=== PATIENT | female | born 1970 | race Caucasian/White ===

== ENCOUNTER → 2023-06-07 09:10 | Outpatient (REF) | payer BC, SELFPAY | LOC: WDC 09:10 | PROVIDERS: ATTENDING PHYSICIAN Nurse Practitioner Obstetrics & Gynecology; FAMILY PHYSICIAN Family Medicine | DX: N64.4 Mastodynia (principal); N61.0 Mastitis without abscess | CPT/HCPCS: 77062; 77066 ==